=== PATIENT | female | born 1985 | race African-American/Black ===

== ENCOUNTER 2016-12-18 13:12 | Emergency (ER) | payer MEDICARE, MEDICAID ==
[2016-12-18] MEDS ORDERED: OXYCODONE-ACETAMINOPHEN 5-325 MG TABLET PO ONE (15:31)
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
[2016-12-18] MEDS ORDERED: LIDOCAINE 1% INJ-PF (10 MG/ML) 30 ML SDV INJ ONE (16:39)
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
[2016-12-18 18:10] VITALS: BP 113/46
== END 2016-12-18 18:10 | disposition home or self-care (01) ==
LOC: ER 13:12
PROC: 0HQKXZZ Repair Right Lower Leg Skin, External Approach (ICD-10-PCS; principal; 2016-12-18)
DX: S81.811A Laceration without foreign body, right lower leg, initial encounter (principal); M79.604 Pain in right leg; M79.605 Pain in left leg; M25.572 Pain in left ankle and joints of left foot; Y04.0XXA Assault by unarmed brawl or fight, initial encounter; F17.210 Nicotine dependence, cigarettes, uncomplicated; M79.89 Other specified soft tissue disorders
CPT/HCPCS: 99283; 73610; 73590; 12002; L1902; A9270

== ENCOUNTER 2016-12-26 13:55 | Emergency (ER) | payer MEDICARE, MEDICAID ==
--- NOTE | 2016-12-26 15:38 | ER Document Report ---
ED Suture/Wound Recheck - General Chief Complaint: Suture Removal Stated Complaint: SUTURE REMOVAL/LEG Time Seen by Provider: 12/26/16 15:22 Notes: Patient is a 31-year-old female who presents for a wound recheck and suture removal. She had a right leg laceration repaired 8 days ago. Denies discharge , fevers, redness or swelling around the wound. TRAVEL OUTSIDE OF THE [place] IN LAST 30 DAYS: No - Related Data Allergies/Adverse Reactions: No Known Allergies Allergy (Verified 12/26/16 14:04) Past Medical History - General Information source: Patient - Social History Smoking Status: Unknown if Ever Smoked Family History: None Patient has suicidal ideation: No Patient has homicidal ideation: No Neurological Medical History: Reports: Hx Migraine Renal/ Medical History: Denies: Hx Peritoneal Dialysis Past Surgical History: Reports: Hx Section - x3 - Immunizations Hx Diphtheria, Pertussis, Tetanus Vaccination: Yes Review of Systems - Review of Systems Notes: REVIEW OF SYSTEMS: CONSTITUTIONAL: -fevers, -chills EENT: -eye pain, -difficulty swallowing, -nasal congestion CARDIOVASCULAR:-chest pain, -syncope. RESPIRATORY: -cough, -SOB GASTROINTESTINAL: -abdominal pain, - nausea, -vomiting, -diarrhea GENITOURINARY: -dysuria, -hematuria MUSCULOSKELETAL: -back pain, -neck pain SKIN: +right leg laceration HEMATOLOGIC: -easy bruising or bleeding. LYMPHATIC: -swollen, enlarged glands. NEUROLOGICAL: -altered mental status or loss of consciousness, -headache, - neurologic symptoms PSYCHIATRIC: -anxiety, -depression. ALL OTHER SYSTEMS REVIEWED AND NEGATIVE. Physical Exam - Vital signs Vitals: Temp Pulse Resp BP Pulse Ox 98.3 F 78 16 129/67 H 99 12/26/16 14:04 12/26/16 14:04 12/26/16 14:04 12/26/16 14:04 12/26/16 14:04 - Notes Notes: PHYSICAL EXAMINATION: GENERAL: Well-appearing, well-nourished and in no acute distress. HEAD: Atraumatic, normocephalic. EYES: Pupils equal round and reactive to light, extraocular movements intact, sclera anicteric, conjunctiva are normal. ENT: nares patent, oropharynx clear without exudates. Moist mucous membranes. NECK: Normal range of motion, supple without lymphadenopathy LUNGS: Breath sounds clear to auscultation bilaterally and equal. No wheezes rales or rhonchi. HEART: Regular rate and rhythm without murmurs ABDOMEN: Soft, nontender, normoactive bowel sounds. No guarding, no rebound. No masses appreciated. EXTREMITIES: Normal range of motion, no pitting or edema. No cyanosis. NEUROLOGICAL: Cranial nerves grossly intact. Normal speech, normal gait. Normal sensory and motor exams. PSYCH: Normal mood, normal affect. SKIN: Well-healed right leg laceration with 5 sutures, no discharge/redness/ swelling Course - Re-evaluation Re-evalutation: Wound appears well healed without evidence of infection. Sutures removed. - Vital Signs Vital signs: Temp Pulse Resp BP Pulse Ox 98.3 F 78 16 129/67 H 99 12/26/16 14:04 12/26/16 14:04 12/26/16 14:04 12/26/16 14:04 12/26/16 14:04 Discharge - Discharge Clinical Impression: Visit for suture removal Condition: Good Disposition: HOME, SELF-CARE Additional Instructions: Continue to apply bacitracin to the wound.
[2016-12-26 16:12] VITALS: BP 136/77
== END 2016-12-26 16:18 | disposition home or self-care (01) ==
LOC: ER 13:55
DX: Z48.02 Encounter for removal of sutures (principal)

== ENCOUNTER 2016-12-27 13:55 | Emergency (ER) | payer MEDICARE, MEDICAID ==
[2016-12-27] MEDS ORDERED: CEPHALEXIN 500 MG CAPSULE PO ONE (15:47)
[2016-12-27] MEDS ORDERED: IBUPROFEN 600 MG TABLET PO ONE (15:47)
--- NOTE | 2016-12-27 15:48 | ER Document Report ---
ED Wound - General Chief Complaint: Wound Recheck Stated Complaint: OPEN WOUND ON LEG Time Seen by Provider: 12/27/16 14:55 Notes: Patient is a 31-year-old female who presents emergency department complaining of right leg wound dehiscence that started yesterday after her sutures were removed in the emergency department. She admits to pain to palpation, no bleeding but minimal drainage. No evidence of purulent drainage. Denies any fevers or chills. Able to ambulate without any difficulty. Has been taking Motrin for pain TRAVEL OUTSIDE OF THE [place] IN LAST 30 DAYS: No - Related Data Allergies/Adverse Reactions: No Known Allergies Allergy (Verified 12/26/16 14:04) Past Medical History - Social History Smoking Status: Current Every Day Smoker Chew tobacco use (# tins/day): No Frequency of alcohol use: None Drug Abuse: None Family History: None Patient has suicidal ideation: No Patient has homicidal ideation: No Neurological Medical History: Reports: Hx Migraine Renal/ Medical History: Denies: Hx Peritoneal Dialysis Past Surgical History: Reports: Hx Section - x3 - Immunizations Hx Diphtheria, Pertussis, Tetanus Vaccination: Yes Review of Systems - Review of Systems Constitutional: No symptoms reported Skin: See HPI -: Yes All other systems reviewed and negative Physical Exam - Vital signs Vitals: Temp Pulse Resp BP Pulse Ox 98.4 F 72 18 111/58 L 99 12/27/16 14:09 12/27/16 14:09 12/27/16 14:09 12/27/16 14:09 12/27/16 14:09 - General General appearance: Appears well In distress: None - Extremities General upper extremity: Normal inspection, Normal ROM General lower extremity: Normal inspection, Nontender, Normal color, Normal ROM , Normal strength, Normal temperature, Normal weight bearing. No: Macrina's sign - Skin Skin Temperature: Warm Skin Moisture: Dry Skin Color: Normal Skin Turgor: Elastic Skin irregularity: Laceration - Duration with evidence of wound dehiscence no evidence of purulent drainage but minimal surrounding cellulitis. Course - Re-evaluation Re-evalutation: 12/27/16 19:27 Is a 31-year-old female presents with cellulitis around the wound status dehiscing. Discussed with patient at sutures no longer indicated that the wound will heal by secondary intention. Will discharge patient home on p.o. antibiotics giving surrounding cellulitis which she states is developed since she had stitches in. Discussed strict return precautions and patient is agreeable with plan. - Vital Signs Vital signs: Temp Pulse Resp BP Pulse Ox 97.4 F 55 L 20 109/60 100 12/27/16 16:07 12/27/16 16:07 12/27/16 16:07 12/27/16 16:07 12/27/16 16:07 Discharge - Discharge Clinical Impression: Wound dehiscence Condition: Good Disposition: HOME, SELF-CARE Instructions: Delayed Wound Closure ([facility]), Cephalexin ([facility]), Cellulitis ([facility]) Prescriptions: Cephalexin Monohydrate [Keflex 500 mg Capsule] 500 mg PO QID #20 capsule
[2016-12-27 16:08] VITALS: BP 109/60
== END 2016-12-27 16:07 | disposition home or self-care (01) ==
LOC: ER 13:55
DX: S81.801A Unspecified open wound, right lower leg, initial encounter (principal); X58.XXXA Exposure to other specified factors, initial encounter; F17.200 Nicotine dependence, unspecified, uncomplicated
CPT/HCPCS: 99282; A9270 ×2

== ENCOUNTER 2017-11-29 09:37 | Emergency (ER) | payer MEDICARE, MEDICAID ==
[2017-11-29] MEDS ORDERED: ONDANSETRON 4 MG TAB.RAPDIS PO ONE (11:00)
--- NOTE | 2017-11-29 11:03 | ER Document Report ---
ED Medical Screen (RME) - General Chief Complaint: Abdominal Pain Stated Complaint: FLU LIKE SYMPTOMS Time Seen by Provider: 11/29/17 10:59 Mode of Arrival: Ambulatory Information source: Patient, [facility] Records Notes: 32-year-old female with no reported past medical history presents with complaint of subjective fever, right flank pain and multiple episodes of vomiting that started 3 days prior to arrival. Patient states that she has been unable to tolerate fluids or food. Does admit to dysuria. She denies any vaginal discharge concern for STD. She does have a history of urinary tract infections. Patient denies any blood in her emesis. I have greeted and performed a rapid medical assessment of the patient. A comprehensive evaluation and assessment will be performed by another ED provider. Medical decision making, lab review/xrays if performed will be reviewed by the ED provider assuming care of the patient. PHYSICAL EXAMINATION: GENERAL: Well-appearing, well-nourished and in no acute distress. HEAD: Atraumatic, normocephalic. EYES: Pupils equal round extraocular movements intact, conjunctiva are normal. ENT: Nares patent NECK: Normal range of motion LUNGS: No respiratory distress Musculoskeletal: Right CVA tenderness NEUROLOGICAL: Normal speech, normal gait. PSYCH: Normal mood, normal affect. SKIN: Warm, Dry, normal turgor, no rashes or lesions noted. TRAVEL OUTSIDE OF THE [place] IN LAST 30 DAYS: No - HPI Onset: Other - 2 days prior to arrival Onset/Duration: Persistent, Worse Quality of pain: Achy Associated Symptoms: Chills, Fever, Nausea, Sweating, Vomiting. denies: Vaginal bleeding Exacerbated by: Denies Relieved by: Denies Similar symptoms previously: Yes Recently seen / treated by doctor: No - Related Data Smoking: Other - 3 days ago Frequency of alcohol use: None Drug Abuse: None Allergies/Adverse Reactions: No Known Allergies Allergy (Verified 11/29/17 09:39) Past Medical History - Social History Chew tobacco use (# tins/day): No Frequency of alcohol use: None Drug Abuse: None Family history: Reviewed & Not Pertinent Neurological Medical History: Reports: Hx Migraine Renal/ Medical History: Denies: Hx Peritoneal Dialysis Past Surgical History: Reports: Hx Section - x3 - Immunizations Hx Diphtheria, Pertussis, Tetanus Vaccination: Yes Physical Exam - Vital signs Vitals: Temp Pulse Resp BP Pulse Ox 99.4 F 116 H 24 H 104/66 99 11/29/17 10:06 11/29/17 10:06 11/29/17 10:06 11/29/17 10:06 11/29/17 10:06 Course - Vital Signs Vital signs: Temp Pulse Resp BP Pulse Ox 99.4 F 116 H 24 H 104/66 99 11/29/17 10:06 11/29/17 10:06 11/29/17 10:06 11/29/17 10:06 11/29/17 10:06
[2017-11-29] MEDS ORDERED: ACETAMINOPHEN 325 MG TABLET PO ONE (11:29)
[2017-11-29] MEDS ORDERED: NORMAL SALINE 1000 ML 1,000 ML IV ONE (11:29)
--- NOTE | 2017-11-29 11:32 | ER Document Report ---
ED GI/ - General Chief Complaint: Abdominal Pain Stated Complaint: FLU LIKE SYMPTOMS Time Seen by Provider: 11/29/17 10:59 Mode of Arrival: Ambulatory Information source: Patient Notes: Patient presents with a 3 day history of right flank pain and dysuria. Patient reports nausea and vomiting 5 episodes today. Patient reports chills at home and suspects she may have had a fever. Patient is concerned she may have a UTI. TRAVEL OUTSIDE OF THE [place] IN LAST 30 DAYS: No - HPI Patient complains to provider of: Abdominal pain, Dysuria, Flank pain, Vomiting. No: Pelvic pain, Onset: Other - 3 days Timing/Duration: Persistent Quality of pain: Achy Pain Level: 4 Location: Left flank, Right flank, Suprapubic Vaginal bleeding (Compared to normal period): Spotting Associated symptoms: Chills, Dysuria, Nausea, Urinary frequency, Vomiting Exacerbated by: Denies Relieved by: Denies Similar symptoms previously: Yes Recently seen / treated by doctor: No - Related Data Allergies/Adverse Reactions: No Known Allergies Allergy (Verified 11/29/17 09:39) Past Medical History - General Information source: Patient, [facility] Records - Social History Smoking Status: Current Every Day Smoker Chew tobacco use (# tins/day): No Smoking Education Provided: Yes Frequency of alcohol use: None Drug Abuse: None Occupation: None Family History: None Patient has suicidal ideation: No Patient has homicidal ideation: No - Medical History Medical History: Negative Neurological Medical History: Reports: Hx Migraine Renal/ Medical History: Denies: Hx Peritoneal Dialysis Past Surgical History: Reports: Hx Section - x3 - Immunizations Hx Diphtheria, Pertussis, Tetanus Vaccination: Yes Review of Systems - Review of Systems Constitutional: Chills EENT: No symptoms reported Cardiovascular: No symptoms reported. denies: Chest pain Respiratory: No symptoms reported. denies: Cough, Short of breath Gastrointestinal: Abdominal pain, Nausea, Vomiting. denies: Diarrhea, Poor appetite Genitourinary: Dysuria, Flank pain Female Genitourinary: No symptoms reported. denies: , Vaginal discharge , Vaginal bleeding Musculoskeletal: Back pain Skin: No symptoms reported Hematologic/Lymphatic: No symptoms reported Neurological/Psychological: No symptoms reported Physical Exam - Vital signs Vitals: Temp Pulse Resp BP Pulse Ox 99.4 F 116 H 24 H 104/66 99 11/29/17 10:06 11/29/17 10:06 11/29/17 10:06 11/29/17 10:06 11/29/17 10:06 - General General appearance: Appears well, Alert In distress: None - HEENT Head: Normocephalic, Atraumatic Eyes: Normal Nasal: Normal Mouth/Lips: Normal Mucous membranes: Normal Neck: Normal, Supple. No: Lymphadenopathy - Respiratory Respiratory status: No respiratory distress Chest status: Nontender Breath sounds: Normal Chest palpation: Normal - Cardiovascular Rhythm: Tachycardia Heart sounds: S1 appreciated, S2 appreciated Murmur: No - Abdominal Inspection: Normal Distension: No distension Bowel sounds: Normal Tenderness: Tender - Right lateral side. No: McBurney's point, Oropeza's sign Organomegaly: No organomegaly - Back Back: CVA tenderness - Bilateral - Extremities General upper extremity: Normal inspection, Normal ROM General lower extremity: Normal inspection, Normal ROM - Neurological Neuro grossly intact: Yes Cognition: Normal Franklin Coma Scale Eye Opening: Spontaneous Tomy Coma Scale Verbal: Oriented Tomy Coma Scale Motor: Obeys Commands Tomy Coma Scale Total: 15 - Psychological Associated symptoms: Normal affect, Normal mood - Skin Skin Temperature: Warm Skin Moisture: Dry Skin Color: Normal Course - Re-evaluation Re-evalutation: 11/29/17 13:26 Patient reports that flank pain abdominal pain is improved at this time. Patient denies any nausea. Second liter of IV fluids infusing. 11/29/17 14:00 Patient's vital signs normalized. Patient nontoxic in appearance. Discussed patient's diagnostic tests with her. Patient encouraged to see her primary doctor to have her electrolytes rechecked as her potassium was mildly decreased today. Patient with findings concerning for pyelonephritis. No concern for sepsis at this time. Patient with normalized vital signs, no fever, no elevation in lactic acid. 11/29/17 17:57 - Vital Signs Vital signs: Temp Pulse Resp BP Pulse Ox 98.1 F 80 18 110/60 100 11/29/17 15:22 11/29/17 15:22 11/29/17 15:22 11/29/17 15:22 11/29/17 15:22 - Laboratory Result Diagrams: 11/29/17 11:55 11/29/17 11:55 Laboratory results interpreted by me: 11/29/17 11/29/17 11/29/17 11:09 11:55 11:55 WBC 16.4 H Seg Neuts % (Manual) 84 H Band Neutrophils % 1 L Lymphocytes % (Manual) 8 L Abs Neuts (Manual) 13.9 H PT 15.5 H Potassium Glucose Direct Bilirubin AST Urine Protein >=500 H Urine Glucose (UA) 50 H Urine Ketones TRACE H Urine Blood MODERATE H Urine Urobilinogen 4.0 H Ur Leukocyte Esterase SMALL H 11/29/17 11:55 WBC Seg Neuts % (Manual) Band Neutrophils % Lymphocytes % (Manual) Abs Neuts (Manual) PT Potassium 3.3 L Glucose 140 H Direct Bilirubin 0.6 H AST 41 H Urine Protein Urine Glucose (UA) Urine Ketones Urine Blood Urine Urobilinogen Ur Leukocyte Esterase Labs- Entire Visit 11/29/17 11/29/17 11/29/17 11:09 11:55 11:55 WBC 16.4 H RBC 4.11 Hgb 13.5 Hct 39.7 MCV 97 MCH 32.9 MCHC 34.1 RDW 14.0 Plt Count 158 Total Counted 100 Seg Neutrophils % Not Reportable Seg Neuts % (Manual) 84 H Band Neutrophils % 1 L Lymphocytes % Not Reportable Lymphocytes % (Manual) 8 L Monocytes % Not Reportable Monocytes % (Manual) 7 Eosinophils % Not Reportable Eosinophils % (Manual) 0 Basophils % Not Reportable Basophils % (Manual) 0 Absolute Neutrophils Not Reportable Abs Neuts (Manual) 13.9 H Absolute Lymphocytes Not Reportable Abs Lymphs (Manual) 1.3 Absolute Monocytes Not Reportable Abs Monocytes (Manual) 1.1 Absolute Eosinophils Not Reportable Absolute Eos (Manual) 0.0 Absolute Basophils Not Reportable Abs Basophils (Manual) 0.0 Toxic Vacuolation PRESENT Platelet Comment ADEQUATE RBC Morph Comment NORMO-CYTIC/CHROMIC PT 15.5 H INR 1.17 VBG pH VBG pCO2 VBG HCO3 VBG Base Excess Sodium Potassium Chloride Carbon Dioxide Anion Gap BUN Creatinine Est GFR ( Amer) Est GFR (Non-Af Amer) Glucose Lactic Acid Calcium Total Bilirubin Direct Bilirubin Neonat Total Bilirubin Neonat Direct Bilirubin Neonat Indirect Bili AST ALT Alkaline Phosphatase Total Protein Albumin Urine Color DARK YELLOW Urine Appearance CLOUDY Urine pH 5.0 Ur Specific [place] 1.019 Urine Protein >=500 H Urine Glucose (UA) 50 H Urine Ketones TRACE H Urine Blood MODERATE H Urine Nitrite NEGATIVE Urine Bilirubin NEGATIVE Urine Urobilinogen 4.0 H Ur Leukocyte Esterase SMALL H Urine WBC (Auto) >182 Urine RBC (Auto) 51 U Hyaline Cast (Auto) 17 Urine Bacteria (Auto) TRACE Urine WBC Clumps MOD Squamous Epi Cells Auto 34 U Non-Squamous Epis Auto 2 Urine Mucus (Auto) MANY Urine Ascorbic Acid NEGATIVE Urine HCG, Qual NEGATIVE 11/29/17 11/29/17 11/29/17 11:55 11:55 11:55 WBC RBC Hgb Hct MCV MCH MCHC RDW Plt Count Total Counted Seg Neutrophils % Seg Neuts % (Manual) Band Neutrophils % Lymphocytes % Lymphocytes % (Manual) Monocytes % Monocytes % (Manual) Eosinophils % Eosinophils % (Manual) Basophils % Basophils % (Manual) Absolute Neutrophils Abs Neuts (Manual) Absolute Lymphocytes Abs Lymphs (Manual) Absolute Monocytes Abs Monocytes (Manual) Absolute Eosinophils Absolute Eos (Manual) Absolute Basophils Abs Basophils (Manual) Toxic Vacuolation Platelet Comment RBC Morph Comment PT INR VBG pH 7.42 VBG pCO2 36.8 VBG HCO3 23.3 VBG Base Excess -0.8 Sodium 137.2 Potassium 3.3 L Chloride 101 Carbon Dioxide 22 Anion Gap 14 BUN 17 Creatinine 1.03 Est GFR ( Amer) > 60 Est GFR (Non-Af Amer) > 60 Glucose 140 H Lactic Acid 1.1 Calcium 9.0 Total Bilirubin 0.7 Direct Bilirubin 0.6 H Neonat Total Bilirubin Not Reportable Neonat Direct Bilirubin Not Reportable Neonat Indirect Bili Not Reportable AST 41 H ALT 31 Alkaline Phosphatase 80 Total Protein 7.3 Albumin 4.1 Urine Color Urine Appearance Urine pH Ur Specific [place] Urine Protein Urine Glucose (UA) Urine Ketones Urine Blood Urine Nitrite Urine Bilirubin Urine Urobilinogen Ur Leukocyte Esterase Urine WBC (Auto) Urine RBC (Auto) U Hyaline Cast (Auto) Urine Bacteria (Auto) Urine WBC Clumps Squamous Epi Cells Auto U Non-Squamous Epis Auto Urine Mucus (Auto) Urine Ascorbic Acid Urine HCG, Qual Discharge - Discharge Clinical Impression: Pyelonephritis, Hypokalemia Condition: Stable Disposition: HOME, SELF-CARE Instructions: Antibiotic Therapy ([facility]), Hypokalemia ([facility]), Pyelonephritis ([facility]) Additional Instructions: Return immediately for any new or worsening symptoms Followup with your primary care provider, call tomorrow to make a followup appointment Your potassium was mildly decreased today. You will need to have this test rechecked, call your doctor today to make an appointment for follow-up. Prescriptions: Cephalexin Monohydrate [Keflex 500 mg Capsule] 500 mg PO Q8 7 Days #21 capsule Ondansetron HCl [Zofran 4 mg Tablet] 1 - 2 tab PO Q6 PRN #15 tablet PRN Reason: Forms: Smoking Cessation Education Referrals: HUNTER RODRIGUEZ DO [NO LOCAL MD] - Follow up as needed [facility] [Provider Group] - Follow up as needed
[2017-11-29 11:34] LABS: APPEARANCE,URINE CLOUDY; BILIRUBIN,URINE NEGATIVE (NEGATIVE); GLUCOSE, URINE 50 mg/dL (NEGATIVE); KETONES,URINE TRACE mg/dL (NEGATIVE); LEUKOCYTE ESTERASE,URINE SMALL (NEGATIVE); NITRITE,URINE NEGATIVE (NEGATIVE); PROTEIN,URINE >=500 mg/dL (NEGATIVE); URINE SPECIFIC GRAVITY 1.019
[2017-11-29 11:35] LABS: COLOR,URINE DARK YELLOW
[2017-11-29 12:15] LABS: VENOUS BLOOD BASE EXCESS -0.8 mmol/L; VENOUS BLOOD HCO3 23.3 mmol/L (20-32); VENOUS BLOOD PCO2 36.8 mmHg (35-63); VENOUS BLOOD PH 7.42 (7.30-7.42)
[2017-11-29] MEDS ORDERED: CEFTRIAXONE INJ 1000 MG VIAL IV ONE (12:16)
[2017-11-29 12:17] LABS: HEMATOCRIT 39.7 % (36.0-47.0); HEMOGLOBIN 13.5 g/dL (12.0-15.5); MEAN CORPUSCULAR HEMOGLOBIN 32.9 pg (27.0-33.4); MEAN CORPUSCULAR HGB CONC 34.1 g/dL (32.0-36.0); MEAN CORPUSCULAR VOLUME 97 fl (80-97); PLATELET COUNT 158 10^3/uL (150-450); RED BLOOD COUNT 4.11 10^6/uL (3.72-5.28); WHITE BLOOD COUNT 16.4 10^3/uL (4.0-10.5)
[2017-11-29 12:20] LABS: INTERNATIONAL RATION (INR) 1.17; PROTHROMBIN TIME 15.5 SEC (11.4-15.4)
[2017-11-29 12:39] LABS: ABSOLUTE LYMPHOCYTES# (MANUAL) 1.3 10^3/uL (0.5-4.7); ABSOLUTE MONOCYTES # (MANUAL) 1.1 10^3/uL (0.1-1.4); ABSOLUTE NEUTROPHILS# (MANUAL) 13.9 10^3/uL (1.7-8.2); BAND NEUTROPHILS % (MANUAL) 1 % (3-5); BASOPHILS % (MANUAL) 0 % (0-2); EOSINOPHILS % (MANUAL) 0 % (0-6); LYMPHOCYTES % (MANUAL) 8 % (13-45); MONOCYTES % (MANUAL) 7 % (3-13); SEGMENTED NEUTROPHILS % (MAN) 84 % (42-78); TOTAL CELLS COUNTED 100
[2017-11-29 12:40] LABS: ALANINE AMINOTRANSFERASE 31 U/L (9-52); ALBUMIN 4.1 g/dL (3.5-5.0); ALKALINE PHOSPHATASE 80 U/L (38-126); ANION GAP 14 (5-19); ASPARTATE AMINO TRANSFERASE 41 U/L (14-36); BILIRUBIN,DIRECT 0.6 mg/dL (0.0-0.4); BILIRUBIN,TOTAL 0.7 mg/dL (0.2-1.3); BLOOD UREA NITROGEN 17 mg/dL (7-20); CARBON DIOXIDE 22 mmol/L (22-30); CHLORIDE 101 mmol/L (98-107); GLUCOSE 140 mg/dL (75-110); PLATELET COMMENT ADEQUATE; POTASSIUM 3.3 mmol/L (3.6-5.0); RBC MORPHOLOGY COMMENT NORMO-CYTIC/CHROMIC; SODIUM 137.2 mmol/L (137-145); TOTAL PROTEIN 7.3 g/dL (6.3-8.2); TOXIC VACUOLATION PRESENT
[2017-11-29] MEDS ORDERED: POTASSIUM CHLORIDE 10 MEQ TABLET.SA PO ONE ×2 (12:52→14:57)
[2017-11-29 15:23] VITALS: BP 110/60
== END 2017-11-29 15:23 | disposition home or self-care (01) ==
LOC: ER 09:37
DX: N12 Tubulo-interstitial nephritis, not specified as acute or chronic (principal); E87.6 Hypokalemia; R11.2 Nausea with vomiting, unspecified; F17.200 Nicotine dependence, unspecified, uncomplicated
CPT/HCPCS: 99284; 96365; 36415; 87040; 87086; 83735; 85025; 85610; 81025; 87088; 80053; 81001; 87186; 82803; 83605; A9270 ×3; J0696; J7030; S0119

== ENCOUNTER 2019-04-14 14:51 | Emergency (ER) | payer MEDICARE, MEDICAID ==
[2019-04-14] MEDS ORDERED: LIDOCAINE 1% INJ-PF (10 MG/ML) 30 ML SDV INJ ONE (15:22)
[2019-04-14] MEDS ORDERED: HYDROCODONE/ACETAMINOPHEN 5-325 MG TABLET PO ONE (15:22)
[2019-04-14] MEDS ORDERED: CEPHALEXIN 500 MG CAPSULE PO ONE (15:22)
[2019-04-14] MEDS ORDERED: DIPH/PERTUSS(ACELL)/TETANUS VAC/PF 0.5 ML SYR (>=10YO) IM ONE (15:23)
--- NOTE | 2019-04-14 15:25 | ER Document Report ---
HPI - HPI Patient complains to provider of: Finger laceration Time Seen by Provider: 04/14/19 15:13 Onset: Just prior to arrival Onset/Duration: Sudden Quality of pain: Sharp Context: Patient states she was attempting to open her car door and has a care being her as a [employer]. Patient states her finger got caught on the care being her and when she jerked her arm back she fell on the ground with the care being her stuck in her finger. Patient with laceration to left third finger. Exacerbated by: Movement Relieved by: Denies Similar symptoms previously: No Recently seen / treated by doctor: No - ROS ROS below otherwise negative: Yes Systems Reviewed and Negative: Yes All other systems reviewed and negative - NEURO Neurology: DENIES: Weakness - GASTROINTESTINAL Gastrointestinal: DENIES: Nausea, Patient vomiting - REPRODUCTIVE Reproductive: DENIES: : - MUSCULOSKELETAL Musculoskeletal: REPORTS: Extremity pain - DERM Skin Color: Normal Skin Problems: Laceration Past Medical History - General Information source: Patient - Social History Smoking Status: Current Every Day Smoker Smoking Education Provided: Yes Frequency of alcohol use: None Drug Abuse: None Occupation: None Family History: None - Medical History Medical History: Other - Mild learning disability Neurological Medical History: Reports: Hx Migraine Renal/ Medical History: Denies: Hx Peritoneal Dialysis Past Surgical History: Reports: Hx Section - x3 - Immunizations Hx Diphtheria, Pertussis, Tetanus Vaccination: Yes Vertical Provider Document - CONSTITUTIONAL Agree With Documented VS: Yes Exam Limitations: No Limitations General Appearance: WD/WN, No Apparent Distress - INFECTION CONTROL TRAVEL OUTSIDE OF THE [place] IN LAST 30 DAYS: No - HEENT HEENT: Atraumatic, Normocephalic - NECK Neck: Normal Inspection - RESPIRATORY Respiratory: Breath Sounds Normal, No Respiratory Distress - CARDIOVASCULAR Cardiovascular: Regular Rate, Regular Rhythm Pulses: Normal: Radial - MUSCULOSKELETAL/EXTREMETIES Musculoskeletal/Extremeties: MAEW, FROM, Tender - Left third finger tenderness with laceration - NEURO Level of Consciousness: Awake, Alert, Appropriate Motor/Sensory: No Motor Deficit - DERM Integumentary: Warm, Dry, Laceration - 7 cm Irregular laceration, partial degloving to the palmar surface of left third finger Course - Vital Signs Vital signs: Temp Pulse Resp BP Pulse Ox 97.9 F 109 H 18 112/76 98 04/14/19 14:57 04/14/19 14:57 04/14/19 14:57 04/14/19 14:57 04/14/19 14:57 - Diagnostic Test Radiology reviewed: Reports reviewed Procedures - Laceration/Wound Repair Left Finger 3rd digit Wound length (cm): 7 Wound's Depth, Shape: Irregular Laceration pre-procedure: Shur-Clens applied Anesthetic type: 1% Lidocaine Wound explored: Contaminated, Foreign body removed Wound Debrided: Minimal Wound Repaired With: Sutures Suture Size/Type: 5:0, Nylon Number of Sutures: 15 Layer Closure?: No Post-procedure wound care: Sterile dressing applied Post-procedure NV exam normal: Yes Complications: No Hands front picture: 1 - irregular 7 cm partial degloving Discharge - Discharge Clinical Impression: Finger laceration Qualifiers: Encounter type: initial encounter Finger: middle finger Damage to nail status: without damage Foreign body presence: with foreign body Laterality: left Qualified Code(s): S61.223A - Laceration with foreign body of left middle finger without damage to nail, initial encounter Condition: Stable Disposition: HOME, SELF-CARE Instructions: Laceration Care ([facility]), Prophylactic Antibiotic ([facility]), Tetanus Immunization Given ([facility]) Additional Instructions: Return immediately for any new or worsening symptoms : fever, redness, drainage, increased swelling, increased pain or any concerning symptoms Followup with your primary care provider, call tomorrow to make a followup appointment Suture removal in 10 days Follow-up with orthopedic doctor for any persistent problems Prescriptions: Cephalexin Monohydrate [Keflex 500 mg Capsule] 500 mg PO Q6H 5 Days capsule Forms: Smoking Cessation Education Referrals: GAGE CRUZ DO [ACTIVE STAFF] - Follow up as needed
--- NOTE | 2019-04-14 16:07 | RADIOLOGY REPORT (SQ) ---
EXAM DESCRIPTION: FINGER LEFT COMPLETED DATE/TIME: 04/14/2019 3:56 pm REASON FOR STUDY: fall, L 3rd finger lac COMPARISON: None. NUMBER OF VIEWS: Three views. TECHNIQUE: AP, lateral, and oblique images acquired of the left third finger. LIMITATIONS: None. FINDINGS: MINERALIZATION: Normal. BONES: No acute fracture or dislocation. No worrisome bone lesions. SOFT TISSUES: Soft tissue laceration of the volar soft tissues of the left 3rd finger. OTHER: No other significant finding. IMPRESSION: No fracture or dislocation of the left 3rd finger. No radiopaque foreign body. TECHNICAL DOCUMENTATION: JOB ID: [id number] [employer]- All Rights Reserved Reading location - IP/workstation name: [email or web address]
[2019-04-14 17:48] VITALS: BP 110/64
== END 2019-04-14 17:48 | disposition home or self-care (01) ==
LOC: ER 14:51
DX: S61.213A Laceration without foreign body of left middle finger without damage to nail, initial encounter (principal); W26.9XXA Contact with unspecified sharp object(s), initial encounter; F17.200 Nicotine dependence, unspecified, uncomplicated; Z23 Encounter for immunization
CPT/HCPCS: 73140; 90715; 12042; A9270 ×2; J3490; 90471; 99283

== ENCOUNTER 2019-04-26 17:56 | Emergency (ER) | payer MEDICARE, MEDICAID ==
[2019-04-26 18:14] VITALS: BP 92/49
--- NOTE | 2019-04-26 18:53 | ER Document Report ---
HPI - HPI Patient complains to provider of: Suture removal Time Seen by Provider: 04/26/19 18:41 Onset: Other - 2 weeks ago Onset/Duration: Better Quality of pain: Achy Pain Level: 1 Context: Patient presents for suture removal to the left third finger. Patient states that she has continued pain and is unable to fully extend the finger. Patient denies following up with orthopedics as she was previously advised to do. Patient denies any new injury to the finger. Patient denies any fever. Associated Symptoms: Other - Left third finger tenderness. denies: Fever Exacerbated by: Movement Relieved by: Denies Similar symptoms previously: No Recently seen / treated by doctor: Yes - ROS ROS below otherwise negative: Yes Systems Reviewed and Negative: Yes All other systems reviewed and negative - CONSTITUTIONAL Constitutional: DENIES: Fever, Chills - NEURO Neurology: DENIES: Weakness - REPRODUCTIVE Reproductive: DENIES: : - MUSCULOSKELETAL Musculoskeletal: REPORTS: Extremity pain, Swelling - DERM Skin Problems: Laceration - Sutured laceration to finger Past Medical History - General Information source: Patient - Social History Smoking Status: Current Every Day Smoker Smoking Education Provided: Yes Frequency of alcohol use: None Drug Abuse: None Lives with: Family Family History: None Neurological Medical History: Reports: Hx Migraine Renal/ Medical History: Denies: Hx Peritoneal Dialysis Past Surgical History: Reports: Hx Section - x3 - Immunizations Hx Diphtheria, Pertussis, Tetanus Vaccination: Yes Vertical Provider Document - CONSTITUTIONAL Agree With Documented VS: Yes Exam Limitations: No Limitations General Appearance: WD/WN, No Apparent Distress - INFECTION CONTROL TRAVEL OUTSIDE OF THE [place] IN LAST 30 DAYS: No - HEENT HEENT: Atraumatic, Normocephalic - NECK Neck: Normal Inspection - RESPIRATORY Respiratory: Breath Sounds Normal, No Respiratory Distress - CARDIOVASCULAR Cardiovascular: Regular Rate, Regular Rhythm Pulses: Normal: Radial - MUSCULOSKELETAL/EXTREMETIES Musculoskeletal/Extremeties: Tender - Left third finger tenderness Notes: Patient complains of continued tenderness to the left third thing finger with 1+ edema. Patient states that she is unable to fully extend the finger although is able to flex finger more readily. Patient without any injury to the dorsal aspect of the finger. Wound edges approximated, no erythema. - NEURO Level of Consciousness: Awake, Alert, Appropriate - DERM Integumentary: Warm, Dry, Laceration - Sutured laceration to left third finger with a 15 intact sutures Course - Re-evaluation Re-evalutation: 04/26/19 18:51 Wound edges approximated, no surrounding erythema. Patient does have some swelling with some decreased range of motion. Patient encouraged to follow-up with hand surgeon for further evaluation at this time. No concern for septic arthritis or tenosynovitis. - Vital Signs Vital signs: Temp Pulse Resp BP Pulse Ox 98.3 F 67 14 92/49 L 99 04/26/19 18:12 04/26/19 18:12 04/26/19 18:12 04/26/19 18:12 04/26/19 18:12 Discharge - Discharge Clinical Impression: Encounter for removal of sutures Condition: Stable Disposition: HOME, SELF-CARE Instructions: Suture Removal Additional Instructions: Return immediately for any new or worsening symptoms Followup with your primary care provider, call tomorrow to make a followup appointment Follow-up with a hand surgeon, Dr. Cruz for a recheck, call their office on Sunday morning for an appointment. Referrals: GAGE CRUZ DO [ACTIVE STAFF] - 04/28/19
== END 2019-04-26 19:11 | disposition home or self-care (01) ==
LOC: ER 17:56
DX: S61.213D Laceration without foreign body of left middle finger without damage to nail, subsequent encounter (principal); W45.8XXD Other foreign body or object entering through skin, subsequent encounter; F17.200 Nicotine dependence, unspecified, uncomplicated
CPT/HCPCS: 99281